=== PATIENT | female | born 1985 | race Caucasian/White ===

== ENCOUNTER 2021-03-12 02:19 | Emergency (ER) | payer BC ==
[~2021-03-12] VITALS: Ht 154.9 cm; Wt 57.7 kg
[~2021-03-12 02:19] MED LIST: GUAI118L3 PO; LEVO175T5 PO; dayquil
--- NOTE | 2021-03-12 02:57 | RAD ---
XR CHEST 1V INDICATION: chest pain, short of air . COMPARISON STUDY: None. FINDINGS: Lungs: Normal lung volume. No pulmonary mass or consolidation. The tracheobronchial tree and hilar st ructures are normal. Pleura: No pleural effusion or pneumothorax. Heart and Mediastinum: The cardiomediastinal silhouette is normal. The great vessels of the thorax ar e normal. Bones and Soft Tissues: The bones and soft tissues are within normal limits. IMPRESSION: No acute cardiopulmonary process. Electronically signed by: Andrea Mora MD (03/12/2021 2:55 AM) [facility]
--- NOTE | 2021-03-12 02:59 | PHYS DOC ---
Past History Past Medical History: Cancer, Hypothyroid Past Surgical History: Cancer Surgery, , Tubal ligation, Other Additional Past Surgical Histo: thyroidectomy Alcohol Use: None Drug Use: None Adult General Chief Complaint Chief Complaint: CHEST PAIN HPI HPI Patient is a 35-year-old female with a past medical history significant for hypothyroidism secondary to resection due to thyroid cancer couple years ago who presents with a chief complaint of chest pain. States he was at work an hour or 2 before coming to the emergency department and began having sharp, left-sided chest pain, with no radiation. Denies any recent dyspnea on exertion, orthopnea, PND or edema. States has been taking her medications as prescribed. Review of Systems Review of Systems Constitutional: Denies fever or chills [] Eyes: Denies change in visual acuity, redness, or eye pain [] HENT: Denies nasal congestion or sore throat [] Respiratory: Denies cough or shortness of breath [] Cardiovascular: No additional information not addressed in HPI [] GI: Denies abdominal pain, nausea, vomiting, bloody stools or diarrhea [] : Denies dysuria or hematuria [] Musculoskeletal: Denies back pain or joint pain [] Integument: Denies rash or skin lesions [] Neurologic: Denies headache, focal weakness or sensory changes [] Endocrine: Denies polyuria or polydipsia [] All other systems were reviewed and found to be within normal limits, except as documented in this note. Allergies Allergies Allergies Coded Allergies Type Severity Reaction Last Updated Verified Penicillins Allergy Unknown 08/03/14 Yes Physical Exam Physical Exam Constitutional: Well developed, well nourished, no acute distress, non-toxic appearance. [] HENT: Normocephalic, atraumatic, bilateral external ears normal, oropharynx moist, no oral exudates, nose normal. [] Eyes: PERRLA, EOMI, conjunctiva normal, no discharge. [] Neck: Normal range of motion, no tenderness, supple, no stridor. [] Cardiovascular:Heart rate regular rhythm, no murmur [] Lungs & Thorax: Bilateral breath sounds clear to auscultation [] Abdomen: Bowel sounds normal, soft, no tenderness, no masses, no pulsatile masses. [] Skin: Warm, dry, no erythema, no rash. [] Back: No tenderness, no CVA tenderness. [] Extremities: No tenderness, no cyanosis, no clubbing, ROM intact, no edema. [] Neurologic: Alert and oriented X 3, normal motor function, normal sensory function, no focal deficits noted. [] Psychologic: Affect normal, judgement normal, mood normal. [] Current Patient Data Vital Signs Vital Signs Date Time Temp Pulse Resp B/P (MAP) Pulse Ox O2 Delivery O2 Flow Rate FiO2 03/12/21 02:20 97.9 59 18 93/55 (68) 98 Room Air EKG EKG [] Radiology/Procedures Radiology/Procedures [] Heart Score C/O Chest Pain: Yes HEART Score for Chest Pain: HEART Score for Chest Pain Response (Comments) Value History Slighlty/Non-Suspicious 0 ECG Normal 0 Age < 45 0 Risk Factors No Risk Factors 0 Troponin < Normal Limit 0 Total 0 Risk Factors: Risk Factors: DM, Current or recent (<one month) smoker, HTN, HLP, family history of CAD, obesity. Risk Scores: Risk Factors: DM, Current or recent (<one month) smoker, HTN, HLP, family history of CAD, obesity. Course & Med Decision Making Course & Med Decision Making Patient is a 35-year-old female who presents with a chief complaint of chest pain that started while she was at work Vital signs within normal limits, on the soft side however. EKG noted above and normal. Troponin normal. Low risk Wells. PERC negative. On evaluation in the emergency department, patient stated that her pain resolved on the way to the emergency department and she had not had any since and is otherwise asymptomatic. Laboratory analysis notable for microcytic anemia, for which patient is iron transfusions weekly and is due for 1 day after tomorrow. States she takes 125 mcg of levothyroxine daily for hypothyroidism. Discussed all findings with patient and advised that her clinical picture is suggestive of possible hypothyroidism/low dose of her levothyroxine. Advised taking an extra 25 mcg as soon as she gets home. Advised to call primary care physician first thing in the morning to update on ED visit and set up a follow-up visit as soon as possible, preferably today to discuss need for optimization of levothyroxine. Gave strict return precautions to the ED. Patient grateful, verbalized understanding and agreed with plan of discharge. [] Dragon Disclaimer Dragon Disclaimer This electronic medical record was generated, in whole or in part, using a voice recognition dictation system. Departure Departure: Impression: Primary Impression: Chest pain Disposition: HOME / SELF CARE / HOMELESS Condition: IMPROVED Referrals: LOGAN HUBBARD MD (PCP) Patient Instructions: Chest Pain (Nonspecific), Levothyroxine tablets Additional Instructions: Thank you for coming into the emergency department tonight and allowing us to take care of you. Please read all the attached information very carefully to go back over what we discussed. As we discussed, your signs, symptoms and laboratory analysis are suggestive however not 100% definitive for hypothyroidism. Given the fact that you are taking your levothyroxine daily you may need a dose adjustment. Please call your primary care physician first thing in the morning to discuss your ED visit and set up a follow-up visit as soon as possible, preferably today to discuss your ED visit, need for thyroid studies and levothyroxine adjustment. Please come back to the emergency department immediately with new or concerning symptoms as discussed. HIMA BORJAS MD Mar 12, 2021 02:59
[2021-03-12 03:02] LABS: BASO # 0.1 x10^3/uL (0.0-0.2); BASO % 2 % (0-3); EOS # 0.2 x10^3/uL (0.0-0.7); EOS % 4 % (0-3); HEMATOCRIT 29.2 % (36.0-47.0); HEMOGLOBIN 8.8 g/dL (12.0-15.5); LYMPH # 2.5 x10^3/uL (1.0-4.8); LYMPH % 43 % (24-48); MEAN CORPUSCULAR HEMOGLOBIN 23 pg (25-35); MEAN CORPUSCULAR HGB CONC 30 g/dL (31-37); MEAN CORPUSCULAR VOLUME 78 fL (79-100); MONO # 0.4 x10^3/uL (0.0-1.1); MONO % 7 % (0-9); NEUT # 2.6 x10^3uL (1.8-7.7); NEUT % 44 % (31-73); PLATELET COUNT 217 x10^3/uL (140-400); RED BLOOD COUNT 3.75 x10^6/uL (3.50-5.40); RED CELL DISTRIBUTION WIDTH 15.6 % (11.5-14.5); WHITE BLOOD COUNT 5.8 x10^3/uL (4.0-11.0)
[2021-03-12 03:22] LABS: CALCIUM 8.5 mg/dL (8.5-10.1); CREATININE 0.6 mg/dL (0.6-1.0); GFR 114.4; POTASSIUM 3.8 mmol/L (3.5-5.1)
[2021-03-12 04:23] VITALS: BP 96/54
--- NOTE | 2021-03-12 04:44 | EKG ---
[address] [address] Test Date: 2021-03-12 Test Time: 02:27:52 Pat Name: OCTAVIO MARI Department: Room: Gender: F Printmaker: : 1985 Requested By: HIMA BORJAS Order Number: [id number] Reading MD: Measurements Intervals [place] Rate: 55 P: 50 NC: 122 QRS: 53 QRSD: 90 T: 46 QT: 404 QTc: 388 Interpretive Statements SINUS RHYTHM NORMAL ECG RI6.02 No previous ECG available for comparison
== END 2021-03-12 04:24 | disposition home or self-care (01) ==
LOC: ER 02:19
DX: R07.89 Other chest pain (principal); E03.9 Hypothyroidism, unspecified; Z88.0 Allergy status to penicillin
CPT/HCPCS: 36415; 71045; 80048; 84484; 85025; 93005; 99285

== ENCOUNTER 2021-03-28 13:38 | Emergency (ER) | payer BC ==
[~2021-03-28] VITALS: Ht 154.9 cm; Wt 58.7 kg
[2021-03-28] MEDS ORDERED: IV NORMAL SALINE 1,000ML 1,000 ML IV ONE (14:00)
--- NOTE | 2021-03-28 14:10 | RAD ---
Exam Date: 03/28/2021 1:49 PM XR CHEST 1V Indication: Reason: CHEST PAIN / Spl. Instructions: / History: . Comparison: March 12, 2021 FINDINGS/ IMPRESSION: The cardiac silhouette and pulmonary vasculature are within normal limits. There is no focal consolidation, pleural effusion or pneumothorax. The visualized osseous structures are intact. Electronically signed by: Loi Mckeon MD (03/28/2021 2:08 PM) [id number]
--- NOTE | 2021-03-28 14:21 | PHYS DOC ---
Past History Past Medical History: Anemia, Cancer, Hypothyroid Past Surgical History: Cancer Surgery, , Tubal ligation, Other Additional Past Surgical Histo: thyroidectomy Alcohol Use: None Drug Use: None General Adult EDM: Chief Complaint: CHEST PAIN HPI: HPI: 35-year-old female presents with chest pain and headache. She states that she was at work and started to feel nauseated with a mild chest heaviness. She went and picked up her children and then went back to work. While she was there, she began to have more chest heaviness, mild shortness of breath, and nausea. She took Zofran which helped with the nausea. With the chest pain she has developed a global pressure headache. Patient denies getting headaches typically. She not sure what caused this. She is anxious about the situation. She denies fever or chills. She was feeling normal yesterday. Review of Systems: Review of Systems: Constitutional: Denies fever or chills Eyes: Denies change in visual acuity HENT: Denies nasal congestion or sore throat Respiratory: Denies cough or shortness of breath Cardiovascular: Chest pain GI: Nausea. Denies abdominal pain, vomiting, bloody stools or diarrhea : Denies dysuria Musculoskeletal: Denies back pain or joint pain Integument: Denies rash Neurologic: Headache. Denies focal weakness or sensory changes Endocrine: Denies polyuria or polydipsia Lymphatic: Denies swollen glands Psychiatric: anxiety Current Medications: Current Meds: Current Medications Medications (Trade) Dose Ordered Sig/Daniella Start Time Stop Time Status Last Admin Dose Admin Sodium Chloride 1,000 ml @ 1,000 mls/hr 1X ONCE 03/28/21 14:00 03/28/21 14:59 03/28/21 14:00 1,000 MLS/HR Allergies: Allergies: Allergies Coded Allergies Type Severity Reaction Last Updated Verified Penicillins Allergy Unknown 08/03/14 Yes Physical Exam: PE: Constitutional: Well developed, well nourished, no acute distress, non-toxic appearance. [] HENT: Normocephalic, atraumatic, bilateral external ears normal, oropharynx moist, no oral exudates, nose normal. [] Eyes: PERRLA, EOMI, conjunctiva normal, no discharge. [] Neck: Normal range of motion, no tenderness, supple, no stridor. [] Cardiovascular:Heart rate regular rhythm, no murmur [] Lungs & Thorax: Bilateral breath sounds clear to auscultation [] Abdomen: Bowel sounds normal, soft, no tenderness, no masses, no pulsatile masses. [] Skin: Warm, dry, no erythema, no rash. [] Back: No tenderness, no CVA tenderness. [] Extremities: No tenderness, no cyanosis, no clubbing, ROM intact, no edema. [] Neurologic: Alert and oriented X 3, normal motor function, normal sensory function, no focal deficits noted. [] Psychologic: Affect normal, judgement normal, mood normal. [] Current Patient Data: Vital Signs: Vital Signs Date Time Temp Pulse Resp B/P (MAP) Pulse Ox O2 Delivery O2 Flow Rate FiO2 03/28/21 13:43 98.4 65 16 106/64 98 Room Air EKG: EKG: Sinus rhythm, rate 61, normal axis, no ST elevation or depression. Downsloping T waves V2 V3. [] Radiology/Procedures: Radiology/Procedures: [] Impressions: Exam Date: 03/28/2021 1:49 PM XR CHEST 1V Indication: Reason: CHEST PAIN / Spl. Instructions: / History: . Comparison: March 12, 2021 FINDINGS/ IMPRESSION: The cardiac silhouette and pulmonary vasculature are within normal limits. There is no focal consolidation, pleural effusion or pneumothorax. The visualized osseous structures are intact. Electronically signed by: Jeramie Mckeon MD (03/28/2021 2:08 PM) [id number] DICTATED AND SIGNED BY: JERAMIE MCKEON MD DATE: 03/28/21 1407 CC: CLARISSE MEANS DO; LOGAN HUBBARD MD ~MTH0 0 Exam Date: 03/28/2021 2:[address] HEAD/BRAIN WO Indication: Reason: headache / Spl. Instructions: / History: . TECHNIQUE: Head CT was performed without intravenous contrast. One or more of the following dose reduction techniques were utilized: *Automated exposure control (AEC) *Adjustment of mA and/or kV according to patient size *Use of iterative reconstruction technique *CT scan done according to ALARA, or ALARA/IMAGE GENTLY FINDINGS: The ventricles and sulci are normal for the patient's stated age. There is no evidence of acute intracranial hemorrhage, extra-axial collection, mass effect, midline shift, or acute territorial infarct. No lesion of the skull base or the calvarium is seen. The visualized paranasal sinuses, mastoid air cells and orbits are normal in appearance. IMPRESSION: No evidence for acute intracranial abnormality. Electronically signed by: Jeramie Mckeon MD (03/28/2021 2:37 PM) [id number] DICTATED AND SIGNED BY: JERAMIE MCKEON MD DATE: 03/28/21 1436 CC: CLARISSE MEANS DO; LOGAN HUBBARD MD ~MTH0 0 Heart Score: C/O Chest Pain: Yes HEART Score for Chest Pain: HEART Score for Chest Pain Response (Comments) Value History Slighlty/Non-Suspicious 0 ECG Nonspecific Repolarizatio 1 Age < 45 0 Risk Factors No Risk Factors 0 Troponin < Normal Limit 0 Total 1 Risk Factors: Risk Factors: DM, Current or recent (<one month) smoker, HTN, HLP, family histo ry of CAD, obesity. Risk Scores: Score 0 - 3: 2.5% MACE over next 6 weeks - Discharge Home Score 4 - 6: 20.3% MACE over next 6 weeks - Admit for Clinical Observation Score 7 - 10: 72.7% MACE over next 6 weeks - Early Invasive Strategies Course & Med Decision Making: Course & Med Decision Making Pertinent Labs and Imaging studies reviewed. (See chart for details) EKG shows some nonspecific mild T wave inversion V2 V3. The patient's labs are unremarkable except for slightly low hemoglobin of 10.2. Troponin is negative. Her urinalysis is negative for infection. Urine drug screen is positive for marijuana. Chest x-ray and head CT are negative for acute findings. For her headache, the patient was given 1 L normal saline, 10 mg Reglan, 25 mg of Benadryl, and 30 mg of Toradol. Her headache has improved and she feels like she is breathing better. She is stable for discharge at this time. [] Dragon Disclaimer: Dragon Disclaimer: This electronic medical record was generated, in whole or in part, using a voice recognition dictation system. Departure Departure: Impression: Primary Impression: Headache Qualified Codes: R51.9 - Headache, unspecified Additional Impression: Chest pain Qualified Codes: R07.9 - Chest pain, unspecified Disposition: HOME / SELF CARE / HOMELESS Condition: STABLE Referrals: LOGAN HUBBARD MD (PCP) Patient Instructions: Chest Pain (Nonspecific), [id number], General Headache Without Cause, [id number] CLARISSE MEANS DO Mar 28, 2021 14:20
[2021-03-28 14:25] LABS: BASO % 1 % (0-3); EOS # 0.2 x10^3/uL (0.0-0.7); EOS % 4 % (0-3); HEMATOCRIT 32.7 % (36.0-47.0); HEMOGLOBIN 10.2 g/dL (12.0-15.5); LYMPH # 2.1 x10^3/uL (1.0-4.8); LYMPH % 44 % (24-48); MEAN CORPUSCULAR HEMOGLOBIN 26 pg (25-35); MEAN CORPUSCULAR HGB CONC 31 g/dL (31-37); MEAN CORPUSCULAR VOLUME 84 fL (79-100); MONO # 0.4 x10^3/uL (0.0-1.1); MONO % 9 % (0-9); NEUT # 1.9 x10^3uL (1.8-7.7); NEUT % 42 % (31-73); PLATELET COUNT 362 x10^3/uL (140-400); RED BLOOD COUNT 3.89 x10^6/uL (3.50-5.40); RED CELL DISTRIBUTION WIDTH 24.9 % (11.5-14.5); WHITE BLOOD COUNT 4.6 x10^3/uL (4.0-11.0)
[2021-03-28 14:26] LABS: CALCIUM 8.1 mg/dL (8.5-10.1); CREATININE 0.6 mg/dL (0.6-1.0); GFR 114.4; POTASSIUM 4.2 mmol/L (3.5-5.1)
[2021-03-28] MEDS ORDERED: METOCLOPRAMIDE HCL 10 MG/2 ML VIAL. IVP ONE (14:30)
[2021-03-28] MEDS ORDERED: KETOROLAC 30 MG/ML VIAL. IVP ONE (14:30)
[2021-03-28] MEDS ORDERED: diphenhydrAMINE 50 MG/ML VIAL IVP ONE (14:30)
[2021-03-28 14:32] LABS: ALBUMIN 3.5 g/dL (3.4-5.0); ALBUMIN/GLOBULIN RATIO 1.3 (1.0-1.7); TOTAL BILIRUBIN 0.2 mg/dL (0.2-1.0); TOTAL PROTEIN 6.1 g/dL (6.4-8.2)
--- NOTE | 2021-03-28 14:40 | RAD ---
Exam Date: 03/28/2021 2:[address] HEAD/BRAIN WO Indication: Reason: headache / Spl. Instructions: / History: . TECHNIQUE: Head CT was performed without intravenous contrast. One or more of the following dose re duction techniques were utilized: *Automated exposure control (AEC) *Adjustment of mA and/or kV according to patient size *Use of iterative reconstruction technique *CT scan done according to ALARA, or ALARA/IMAGE GENTLY FINDINGS: The ventricles and sulci are normal for the patient's stated age. There is no evidence of acute int racranial hemorrhage, extra-axial collection, mass effect, midline shift, or acute territorial infarc t. No lesion of the skull base or the calvarium is seen. The visualized paranasal sinuses, mastoid ai r cells and orbits are normal in appearance. IMPRESSION: No evidence for acute intracranial abnormality. Electronically signed by: Loi Mckeon MD (03/28/2021 2:37 PM) [id number]
[2021-03-28 15:09] LABS: AMPHETAMINE/METHAMPHETAMINE NEG (NEG); BARBITURATES NEG (NEG); BENZODIAZEPINES NEG (NEG); CANNABINOIDS POS (NEG); COCAINE NEG (NEG); METHADONE NEG (NEG); OPIATES NEG (NEG); PHENCYCLIDINE NEG (NEG)
[2021-03-28 15:14] LABS: BILIRUBIN,URINE NEG (NEG); CLARITY,URINE CLEAR; COLOR,URINE YELLOW; GLUCOSE,URINE NEG (NEG); NITRITE,URINE NEG (NEG)
[2021-03-28 15:31] LABS: BACTERIA,URINE 0 /HPF (0-FEW); SQUAMOUS EPITHELIAL CELL,UR OCC /LPF; WBC,URINE OCC /HPF (0-4)
[2021-03-28 15:32] LABS: AMORPHOUS SEDIMENT,UR PRESENT /HPF
[2021-03-28 15:46] VITALS: BP 110/67
[2021-03-28 16:17] LABS: ANISOCYTOSIS PRESENT; PLT ESTIMATE ADEQUATE (ADEQUATE)
--- NOTE | 2021-03-28 21:02 | EKG ---
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
== END 2021-03-28 15:47 | disposition home or self-care (01) ==
LOC: ER 13:38
DX: R07.89 Other chest pain (principal); R51.9 Headache, unspecified; R06.02 Shortness of breath; E03.9 Hypothyroidism, unspecified; Z86.2 Personal history of diseases of the blood and blood-forming organs and certain disorders involving the immune mechanism; Z88.0 Allergy status to penicillin
CPT/HCPCS: 36415; 70450; 71045; 80053; 80307; 81001; 81025; 84484; 85025; 93005; 96361; 96374; 96375; 99285; J1200; J1885; J2765; J7030

== ENCOUNTER 2021-07-24 17:07 | Emergency (ER) | payer BC | END 2021-07-24 17:22 | disposition left against medical advice (07) | LOC: ER 17:07 | DX: R10.9 Unspecified abdominal pain (principal); Z53.21 Procedure and treatment not carried out due to patient leaving prior to being seen by health care provider ==

== ENCOUNTER 2022-01-31 09:48 | Emergency (ER) | payer BC ==
[~2022-01-31] VITALS: Ht 154.9 cm; Wt 58.7 kg
[2022-01-31 10:03] VITALS: BP 137/91
[2022-01-31] MEDS: hydrOXYzine HCL 25 MG TABLET PO PRN (10:22)
[2022-01-31 10:34] LABS: BASO % 1 % (0-3); EOS # 0.4 x10^3/uL (0.0-0.7); EOS % 7 % (0-3); HEMATOCRIT 36.9 % (36.0-47.0); HEMOGLOBIN 12.3 g/dL (12.0-15.5); LYMPH # 2.4 x10^3/uL (1.0-4.8); LYMPH % 45 % (24-48); MEAN CORPUSCULAR HEMOGLOBIN 31 pg (25-35); MEAN CORPUSCULAR HGB CONC 33 g/dL (31-37); MEAN CORPUSCULAR VOLUME 94 fL (79-100); MONO # 0.4 x10^3/uL (0.0-1.1); MONO % 9 % (0-9); NEUT % 39 % (31-73); PLATELET COUNT 262 x10^3/uL (140-400); RED BLOOD COUNT 3.92 x10^6/uL (3.50-5.40); RED CELL DISTRIBUTION WIDTH 13.1 % (11.5-14.5); WHITE BLOOD COUNT 5.3 x10^3/uL (4.0-11.0)
--- NOTE | 2022-01-31 10:38 | PHYS DOC ---
Past History Past Medical History: Anemia, Cancer, Hypothyroid (DEVON WHITMAN) Past Surgical History: Cancer Surgery, , Tubal ligation, Other Additional Past Surgical Histo: thyroidectomy (DEVON WHITMAN) Alcohol Use: None Drug Use: None (DEVON WHITMAN) General Adult EDM: Chief Complaint: CHEST PAIN HPI: HPI: Patient is a 36 year old female with past medical history that includes anemia, acquired hypothyroidism status post thyroidectomy who presents with chest pain x3 days. Patient describes the pain as "heavy" for the past 3 days. She states she has been under a lot of stress lately and is visibly emotionally upset. Patient complains also of low back pain that she believes is associated with stress chest pain. She denies palpitations, shortness of breath, cough, diaphoresis, nausea/vomiting. Patient has no other complaints at this time. (DEVON WHITMAN) Review of Systems: Review of Systems: Constitutional: Denies fever, chills or generalized weakness Eyes: Denies change in visual acuity, visual field deficits or discharge HENT: Denies ear pain, nasal congestion or sore throat Respiratory: Denies cough or shortness of breath Cardiovascular: See HPI GI: Denies abdominal pain, nausea, vomiting, bloody stools or diarrhea : Denies dysuria or hematuria Musculoskeletal: See HPI Integument: Denies rash or other skin lesion Neurologic: Denies headache, focal weakness or sensory changes (DEVON WHITMAN) Current Medications: Current Meds: Current Medications Medications (Trade) Dose Ordered Sig/Daniella Start Time Stop Time Status Last Admin Dose Admin Hydroxyzine HCl (Atarax) 50 mg PRN Q6HRS PRN 01/31/22 10:15 01/31/22 10:22 50 MG (DEVON WHITMAN) Allergies: Allergies: Allergies Coded Allergies Type Severity Reaction Last Updated Verified Penicillins Allergy Unknown 08/03/14 Yes (DEVON WHITMAN) Physical Exam: PE: Constitutional: Well developed, well nourished, non-toxic appearance. HENT: Normocephalic, atraumatic, bilateral external ears normal, nose normal. Eyes: EOMI, conjunctiva normal, no discharge. Neck: Normal range of motion, no stridor, midline scar at base of anterior neck consistent with prior thyroidectomy. Cardiovascular: Heart regular rate and rhythm. No apparent murmurs, rubs or gallops. Lungs & Thorax: Equal thoracic expansion, no increased work of breathing. Skin: Warm, dry, no erythema, no rash. Back: No step-off, no midline tenderness. Neurologic: Alert and oriented X 3, normal motor function, normal sensory function, no focal deficits noted. Psychologic: Affect anxious, fair insight, fair judgment. (DEVON WHITMAN) Current Patient Data: Labs: Laboratory Tests Test 01/31/22 10:20 White Blood Count 5.3 x10^3/uL (4.0-11.0) Red Blood Count 3.92 x10^6/uL (3.50-5.40) Hemoglobin 12.3 g/dL (12.0-15.5) Hematocrit 36.9 % (36.0-47.0) Mean Corpuscular Volume 94 fL (79-100) Mean Corpuscular Hemoglobin 31 pg (25-35) Mean Corpuscular Hemoglobin Concent 33 g/dL (31-37) Red Cell Distribution Width 13.1 % (11.5-14.5) Platelet Count 262 x10^3/uL (140-400) Neutrophils (%) (Auto) 39 % (31-73) Lymphocytes (%) (Auto) 45 % (24-48) Monocytes (%) (Auto) 9 % (0-9) Eosinophils (%) (Auto) 7 % (0-3) Basophils (%) (Auto) 1 % (0-3) Neutrophils # (Auto) 2.0 x10^3uL (1.8-7.7) Lymphocytes # (Auto) 2.4 x10^3/uL (1.0-4.8) Monocytes # (Auto) 0.4 x10^3/uL (0.0-1.1) Eosinophils # (Auto) 0.4 x10^3/uL (0.0-0.7) Basophils # (Auto) 0.0 x10^3/uL (0.0-0.2) Sodium Level 139 mmol/L (136-145) Potassium Level 4.1 mmol/L (3.5-5.1) Chloride Level 104 mmol/L (98-107) Carbon Dioxide Level 27 mmol/L (21-32) Anion Gap 8 (6-14) Blood Urea Nitrogen 15 mg/dL (7-20) Creatinine 0.6 mg/dL (0.6-1.0) Estimated GFR (Cockcroft-Gault) 113.8 BUN/Creatinine Ratio 25 (6-20) Glucose Level 96 mg/dL (70-99) Calcium Level 8.7 mg/dL (8.5-10.1) Total Bilirubin 0.3 mg/dL (0.2-1.0) Aspartate Amino Transf (AST/SGOT) 21 U/L (15-37) Alanine Aminotransferase (ALT/SGPT) 31 U/L (14-59) Alkaline Phosphatase 52 U/L (46-116) Troponin I High Sensitivity 9 ng/L (4-50) Total Protein 6.5 g/dL (6.4-8.2) Albumin 3.7 g/dL (3.4-5.0) Albumin/Globulin Ratio 1.3 (1.0-1.7) Vital Signs: Vital Signs Date Time Temp Pulse Resp B/P (MAP) Pulse Ox O2 Delivery O2 Flow Rate FiO2 01/31/22 10:03 58 18 137/91 (106) 99 (DEVON WHITMAN) EKG: EKG: EKG Interpreted by Dr. Means at 0959: Sinus tachycardia at 104 bpm with no ectopic beats. WA 128/QT 408 ms. No STEMI. (DEVON WHITMAN) Heart Score: C/O Chest Pain: Yes HEART Score for Chest Pain: HEART Score for Chest Pain Response (Comments) Value History Slighlty/Non-Suspicious 0 ECG Nonspecific Repolarizatio 1 Age < 45 0 Risk Factors No Risk Factors 0 Troponin < Normal Limit 0 Total 1 Risk Factors: Risk Factors: none Risk Scores: Score 0 - 3: 2.5% MACE over next 6 weeks - Discharge Home Score 4 - 6: 20.3% MACE over next 6 weeks - Admit for Clinical Observation Score 7 - 10: 72.7% MACE over next 6 weeks - Early Invasive Strategies (DEVON WHITMAN) Course & Med Decision Making: Course & Med Decision Making Pertinent Labs and Imaging studies reviewed. (See chart for details) Patient is a 36-year-old female who presents with a 3-day history of chest heaviness. EKG without any acute changes, troponin negative. Patient was given hydroxyzine in the department with significant relief of anxiety. Patient is reassured that there is not any evidence of acute cardiac pathology at this time. Patient feels well enough to go home and appears much calmer. Return precautions were provided. Patient understands and is agreeable to discharge plan. (DEVON WHITMAN) Dragon Disclaimer: Dragon Disclaimer: This electronic medical record was generated, in whole or in part, using a voice recognition dictation system. (DEVON WHITMAN) Attending Co-Sign The patient was seen and interviewed as well as examined at the bedside. The chart was reviewed. The case was discussed. Agree with the plan of care. (CLARISSE MEANS DO) Departure Departure: Impression: Primary Impression: Anxiety about health Additional Impressions: Acquired hypothyroidism History of anemia Disposition: HOME / SELF CARE / HOMELESS Condition: GOOD Referrals: LOGAN HUBBARD MD (PCP) Patient Instructions: Stress Additional Instructions: EMERGENCY DEPARTMENT GENERAL DISCHARGE INSTRUCTIONS Thank you for coming to [facility] (ED) today and trusting us with you care. We trust that you had a positive experience in our Emergency Department. If you wish to speak to the department management, you may call the director at [phone]. YOUR FOLLOW UP INSTRUCTIONS ARE FOLLOWS: 1. Follow up with your primary care doctor. If you do not have a primary doctor, please ask for a resource list of physicians or clinics that may be able to assist you with follow up care. 2. The emergency provider has interpreted your imaging studies, if any were ordered. The radiology help desk support specialist also reviewed them. If there is a change in the findings, you will be notified in 48 hours when at all possible. 3. If a lab test or culture has been done, your results will be reviewed and you will be notified if you need a change in treatment. 4. Follow instructions verbalized to you and refer to the printouts if needed. ADDITIONAL INSTRUCTIONS AND INFORMATION: 1. Your care today has been supervised by a physician who is specially trained in emergency care. Many problems require more than one evaluation for a complete diagnosis and treatment. We recommend that you schedule your follow up appointment as recommended to ensure complete treatment of you illness or injury. If you are unable to obtain follow up care and continue to have a problem, or if your condition worsens, we recommend that you return to the ED. 2. We are not able to safely determine your condition over the phone nor are we able to give sound medical advice over the phone. For these safety reasons, if you call for medical advice we will ask you to come to the ED for further evaluation. 3. If you have any questions regarding these discharge instructions please call the ED at [phone]. SAFETY INFORMATION: In the interest of safety, wellness, and injury prevention; we encourage you to wear your seat belt, if you smoke; quite smoking, and we encourage family to use a protective helmet for bicycling and other sporting events that present an increased risk for head injury. IF YOUR SYMPTOMS WORSEN OR NEW SYMPTOMS DEVELOP, OR YOU HAVE CONCERNS ABOUT YOUR CONDITION; OR IF YOUR CONDITION WORSENS WHILE YOU ARE WAITING FOR YOUR FOLLOW UP APPOINTMENT; EITHER CONTACT YOUR PRIMARY CARE DOCTOR, THE PHYSICIAN WHOSE NAME AND NUMBER YOU WERE GIVEN, OR RETURN TO THE ED IMMEDIATELY. DEVON WHITMAN January 31, 2022 10:38 CLARISSE MEANS DO February 01, 2022 06:07
[2022-01-31 10:44] LABS: CALCIUM 8.7 mg/dL (8.5-10.1); CREATININE 0.6 mg/dL (0.6-1.0); GFR 113.8; POTASSIUM 4.1 mmol/L (3.5-5.1)
[2022-01-31 10:50] LABS: ALBUMIN 3.7 g/dL (3.4-5.0); ALBUMIN/GLOBULIN RATIO 1.3 (1.0-1.7); TOTAL BILIRUBIN 0.3 mg/dL (0.2-1.0); TOTAL PROTEIN 6.5 g/dL (6.4-8.2)
== END 2022-01-31 11:26 | disposition home or self-care (01) ==
LOC: ER 09:48
DX: F41.9 Anxiety disorder, unspecified (principal); M54.59 Other low back pain; E89.0 Postprocedural hypothyroidism; Z86.2 Personal history of diseases of the blood and blood-forming organs and certain disorders involving the immune mechanism; Z98.890 Other specified postprocedural states; Z98.51 Tubal ligation status; Z88.0 Allergy status to penicillin
CPT/HCPCS: 36415; 80053; 84484; 85025; 93005; 99284